=== PATIENT | female | born 1995 | race Caucasian/White ===

== ENCOUNTER 2017-06-26 14:18 | Emergency (ER) | payer MEDICAID ==
[2017-06-26 14:32] VITALS: TEMP 98.7
[2017-06-26 15:57] LABS: BASO # 0.01 K/mm3 (0.0-2.0); BASO % 0.1 % (0.0-3.0); EOS # 0.4 (0.0-0.7); EOS % 4.6 % (1.5-5.0); GRAN # 4.99 (1.4-6.5); GRAN % 65.5 % (50.0-68.0); HEMATOCRIT 38.1 % (36.0-48.0); LYMPH # 1.6 (1.2-3.4); LYMPH % 21.3 % (22.0-35.0); MEAN CELL VOLUME 85.2 fl (80.0-105.0); MEAN CORPUSCULAR HGB CONC 32.8 g/dl (31.0-37.0); MEAN PLATELET VOLUME 8.9 fl (7.0-11.0); MONO # 0.7 (0.1-0.6); MONO % 8.5 % (1.0-6.0); RED CELL DISTRIBUTION WIDTH 12.8 % (11.5-14.5); WHITE BLOOD COUNT 7.6 10^3/ul (4.5-11.0)
[2017-06-26 16:00] LABS: ALB/GLOB RATIO 1.4 (1.1-1.8); ALKALINE PHOSPHATASE 74 U/L (38-126); ALT/SGPT 27 U/L (7-56); AST/SGOT 26 U/L (14-36); BILIRUBIN,TOTAL 0.6 mg/dL (0.2-1.3); BLOOD UREA NITROGEN 11 mg/dL (7-21); CALCIUM 9.1 mg/dL (8.4-10.5); CARBON DIOXIDE 29 mmol/L (21-33); CHLORIDE 104 mmol/L (98-107); GFR AFRICAN-AMERICAN > 60; GLUCOSE,RANDOM 63 mg/dL (70-110); POTASSIUM 4.3 mmol/L (3.6-5.0); SODIUM 141 mmol/L (132-148); TOTAL PROTEIN 7.3 g/dL (5.8-8.3)
[2017-06-26 16:02] LABS: INR 1.06 (0.93-1.08); PARTIAL THROMBOPLASTIN TIME 31.7 Seconds (23.7-30.8)
[2017-06-26 16:04] VITALS: BP 110/75; PULSE 89; RESP 18; O2SAT 98
--- NOTE | 2017-06-26 16:12 | US ---
HISTORY: vaginal bleeding COMPARISON: None available. TECHNIQUE: Transabdominal and transvaginal pelvic ultrasound was performed. FINDINGS: UTERUS: Measures 6.9 x 3.2 x 4.3 cm. Anteverted and normal in size. No fibroid or other mass lesion seen. ENDOMETRIUM: Measures 4.1 mm in diameter. Normal in appearance. CERVIX: No cervical abnormality identified. RIGHT OVARY: Measures 4.0 x 2.3 x 2.5 cm. No solid mass. Normal flow. There are 2 simple cysts measuring 1.8 x 1.2 x 1.9 cm and 1.1 x 1.0 x 1.0 cm. LEFT OVARY: Measures 2.7 x 1.6 x 1.6 cm. No solid mass. Normal flow. FREE FLUID: No significant free fluid noted. OTHER FINDINGS: None. IMPRESSION: Normal pelvic ultrasound.
--- NOTE | 2017-06-26 16:17 | ED PDOC ---
Arrival/HPI - General Chief Complaint: Female Genitourinary Time Seen by Provider: 06/26/17 15:10 Historian: Patient - History of Present Illness Narrative History of Present Illness (Text): 06/26/17 16:18 21-year-old female presents today with vaginal bleeding that has been continuous over the past few months. Patient states she has control implant in the left upper arm for the past 2 years. Patient states over the past few months she's had continuous small amount of bleeding from the vagina. Patient denies . Denies abdominal pain. Denies fevers or chills. No chest pain or shortness of breath. Denies dizziness or weakness. Patient denies . Patient states the control implant was placed by a implementation services analyst in [place] and she currently does not have a implementation services analyst to follow with. Time/Duration: > month Past Medical History - Provider Review Nursing Documentation Reviewed: Yes - Travel History Have you recently traveled outside [place] w/in the past 3 mons?: No - Infectious Disease Hx of Infectious Diseases: None - Tetanus Immunization Tetanus Immunization: Unknown - Reproductive Menopause: No - Psychiatric Hx Substance Use: No - Anesthesia Hx Anesthesia: No Family/Social History - Physician Review Nursing Documentation Reviewed: Yes Family/Social History: Unknown Family HX Smoking Status: Unknown If Ever Smoked Hx Alcohol Use: Yes Frequency of alcohol use: Socially Hx Substance Use: No Allergies/Home Meds Allergies/Adverse Reactions: Allergies No Known Allergies Allergy (Verified 06/26/17 14:33) Home Medications: Home Meds Medication Instructions Recorded Confirmed Etonogestrel [Nexplanon] 0 mg SQ 06/26/17 Review of Systems - Review of Systems Constitutional: absent: Fatigue, Fevers Respiratory: absent: SOB, Cough Cardiovascular: absent: Chest Pain, Palpitations Gastrointestinal: absent: Abdominal Pain, Constipation, Diarrhea, Nausea, Vomiting Genitourinary Female: Vaginal Bleeding. absent: Dysuria, Frequency, Hematuria, Vaginal Discharge Musculoskeletal: absent: Arthralgias, Back Pain, Neck Pain Skin: absent: Rash, Pruritis Neurological: absent: Headache, Dizziness Psychiatric: absent: Anxiety, Depression Physical Exam Vital Signs Reviewed: Yes Vital Signs Temp Pulse Resp BP Pulse Ox 06/26/17 16:03 89 18 110/75 98 06/26/17 14:27 98.7 F 87 16 116/76 100 Temperature: Afebrile Blood Pressure: Normal Pulse: Regular Respiratory Rate: Normal Appearance: Positive for: Well-Appearing, Non-Toxic, Comfortable Pain Distress: None Mental Status: Positive for: Alert and Oriented X 3 - Systems Exam Head: Present: Atraumatic Mouth: Present: Moist Mucous Membranes Neck: Present: Normal Range of Motion Respiratory/Chest: Present: Clear to Auscultation, Good Air Exchange. No: Respiratory Distress, Accessory Muscle Use Cardiovascular: Present: Regular Rate and Rhythm, Normal S1, S2. No: Murmurs Abdomen: Present: Normal Bowel Sounds. No: Tenderness, Distention, Peritoneal Signs, Rebound, Guarding Genitourinary/Pelvic Exam: Present: Normal External Genitalia, Vaginal Bleeding (+ minimal bleeding noted), Cervical os Closed, Other (chaparoned by Mona barnett emt. ). No: Vaginal Discharge, Vaginal Lesions, Adenexal Tenderness, Adenexal Mass, Cervical Motion Tendernes, Odor Upper Extremity: Present: Normal ROM Lower Extremity: Present: Normal ROM Neurological: Present: GCS=15 Skin: Present: Warm, Dry, Normal Color. No: Rashes Psychiatric: Present: Alert, Oriented x 3 Medical Decision Making ED Course and Treatment: 06/26/17 16:15 Patient is nontoxic well appearing in no distress. vital signs are stable. CBC: wnl CMP: wnl pt/ptt; wnl Urinalysis; + blood, + nitrates, no leukocytes. Ultrasound:FINDINGS: UTERUS: Measures 6.9 x 3.2 x 4.3 cm. Anteverted and normal in size. No fibroid or other mass lesion seen. ENDOMETRIUM: Measures 4.1 mm in diameter. Normal in appearance. CERVIX: No cervical abnormality identified. RIGHT OVARY: Measures 4.0 x 2.3 x 2.5 cm. No solid mass. Normal flow. There are 2 simple cysts measuring 1.8 x 1.2 x 1.9 cm and 1.1 x 1.0 x 1.0 cm. LEFT OVARY: Measures 2.7 x 1.6 x 1.6 cm. No solid mass. Normal flow. FREE FLUID: No significant free fluid noted. OTHER FINDINGS: None. IMPRESSION: Normal pelvic ultrasound. Discussed all the results the patient. advised f/u with the splicing supervisor within the next 2 days. advised immediate return if symptoms worsen,persist or if new symptoms develop. Patient verbalizes understanding of discharge instructions and need for immediate followup. Impression: Vaginal bleeding, UTI increase fluids nitrofurantoin; 1 tablet twice daily x 10 days. follow up with the DRYING FRAME OPERATOR within the next 2 days return immediately if symptoms worsen,persist or if new symptoms develop; high fevers, severe abdominal pain, heavy bleeding, dizziness, weakness or if any other concerning symptoms develop. - Lab Interpretations Lab Results: 06/26/17 15:20 06/26/17 15:20 Lab Results 06/26/17 16:00: Urine Color Yellow, Urine Appearance Turbid, Urine pH 7.5, Ur Specific [place] 1.015, Urine Protein Negative, Urine Glucose (UA) Negative, Urine Ketones Negative, Urine Blood Large H, Urine Nitrate Positive H, Urine Bilirubin Negative, Urine Urobilinogen 0.2, Ur Leukocyte Esterase Negative, Urine RBC Pending, Urine WBC Pending 06/26/17 15:20: WBC 7.6, RBC 4.47, Hgb 12.5, Hct 38.1, MCV 85.2, MCH 28.0, MCHC 32.8, RDW 12.8, Plt Count 282, MPV 8.9, Gran % 65.5, Lymph % (Auto) 21.3 L, [place] % (Auto) 8.5 H, Eos % (Auto) 4.6, Baso % (Auto) 0.1, Gran # 4.99, Lymph # 1.6, [place] # 0.7 H, Eos # 0.4, Baso # 0.01 06/26/17 15:20: Sodium 141, Potassium 4.3, Chloride 104, Carbon Dioxide 29, Anion Gap 12, BUN 11, Creatinine 0.7, Est GFR ( Amer) > 60, Est GFR (Non- Af Amer) > 60, Random Glucose 63 L, Calcium 9.1, Total Bilirubin 0.6, AST 26, ALT 27, Alkaline Phosphatase 74, Total Protein 7.3, Albumin 4.2, Globulin 3.1, Albumin/Globulin Ratio 1.4 06/26/17 15:20: PT 11.4, INR 1.06, APTT 31.7 H - RAD Interpretation Radiology Orders: 06/26/17 15:10 TRANSVAGINAL [US] Stat Disposition/Present on Arrival - Present on Arrival Any Indicators Present on Arrival: No History of DVT/PE: No History of Uncontrolled Diabetes: No Urinary Catheter: No History of Decub. Ulcer: No History Surgical Site Infection Following: None - Disposition Have Diagnosis and Disposition been Completed?: Yes Diagnosis: Vaginal bleeding, UTI (urinary tract infection) Disposition: HOME/ ROUTINE Disposition Time: 16:14 Patient Plan: Discharge Patient Problems: Current Active Problems Problem Status Onset Vaginal bleeding Acute Condition: GOOD Discharge Instructions (ExitCare): Urinary Tract Infection in Women (ED) Additional Instructions: increase fluids nitrofurantoin; 1 tablet twice daily x 10 days. follow up with the DRYING FRAME OPERATOR within the next 2 days return immediately if symptoms worsen,persist or if new symptoms develop; high fevers, severe abdominal pain, heavy bleeding, dizziness, weakness or if any other concerning symptoms develop. Prescriptions: Nitrofurantoin Macrocrystals [Macrobid] 100 mg PO BID #20 cap Referrals: PCP,NO [Primary Care Provider] - Follow up with primary Arash Roland DO [Staff Provider] - Follow up with primary [facility] [Outside] - [facility] with [facility] [Outside] - Follow up with primary Kayleigh Gama MD [Staff Provider] - Follow up with primary Forms: [employer] (Kinyarwanda), WORK NOTE
[2017-06-26 16:18] LABS: PH,URINE 7.5 (4.7-8.0); URINE BILIRUBIN NEGATIVE (NEGATIVE); URINE BLOOD LARGE (NEGATIVE); URINE GLUCOSE (UA) NEGATIVE (NEGATIVE); URINE KETONE NEGATIVE (NEGATIVE); URINE LEUKOCYTE ESTERASE NEGATIVE Leu/uL (NEGATIVE); URINE PROTEIN NEGATIVE mg/dL (<30 mg/dL); URINE UROBILINOGEN 0.2 E.U./dL (<1 E.U./dL)
[2017-06-26 16:19] LABS: URINE APPEARANCE TURBID (CLEAR); URINE COLOR YELLOW (YELLOW)
[2017-06-26 16:23] LABS: URINE BACTERIA TRACE (NEG); URINE WBC 0 - 2 /hpf (0-6)
== END 2017-06-26 16:45 | disposition home or self-care (01) ==
LOC: ED 14:18
DX: N93.9 Abnormal uterine and vaginal bleeding, unspecified (principal); N39.0 Urinary tract infection, site not specified